=== PATIENT | female | born 1950 | race Caucasian/White ===

== ENCOUNTER → 2024-01-21 12:33 | Outpatient (REF) | payer MEDICARE, BC, SELFPAY | LOC: RAD 12:33 | PROVIDERS: ATTENDING PHYSICIAN Internal Medicine; FAMILY PHYSICIAN Registered Nurse | DX: M81.0 Age-related osteoporosis without current pathological fracture (principal) | CPT/HCPCS: 77080 ==

== ENCOUNTER → 2025-08-12 15:42 | Outpatient (REF) | payer MEDICARE, BC, SELFPAY | LOC: WDC 15:42 | PROVIDERS: ATTENDING PHYSICIAN Registered Nurse | DX: Z12.31 Encounter for screening mammogram for malignant neoplasm of breast (principal) | CPT/HCPCS: 77063; 77067 ==